=== PATIENT | male | born 1980 | race Caucasian/White ===

== ENCOUNTER 2018-05-02 21:16 | Emergency (ER) | payer OTHER | END 2018-05-03 01:15 | disposition home or self-care (01) | LOC: FTE 05-03 01:15 | DX: S93.401A Sprain of unspecified ligament of right ankle, initial encounter (principal); X58.XXXA Exposure to other specified factors, initial encounter; Y92.312 Tennis court as the place of occurrence of the external cause | CPT/HCPCS: 73610; 73610-RT; 99283-25 ==